=== PATIENT | female | born 1945 | race Caucasian/White ===

== ENCOUNTER 2018-10-13 20:19 | Emergency (ER) | payer MEDICAID, OTHER ==
[2018-10-13 20:32] VITALS: BP 165/70
[2018-10-13] MEDS ORDERED: CEPHALEXIN 250 MG Prepack 8 CAP BOTTLE PO STA (20:41)
[2018-10-13] MEDS ORDERED: MUPIROCIN 2% OINT 1 GM TOP STA (20:41)
--- NOTE | 2018-10-13 20:44 | ED Physician Documentation ---
PD HPI SKIN - Stated complaint Stated Complaint: RT LEG PAIN - Chief complaint Chief Complaint: Wound - History obtained from History obtained from: Patient - History of Present Illness Timing - onset: Chronic (She has a chronic nonhealing leg ulcer. Her insurance became active today so she sought care in the emergency department. She has no acute complaints. Is been going on for greater than a year.) Review of Systems Constitutional: denies: Fever, Chills Respiratory: denies: Dyspnea, Cough GI: denies: Abdominal Pain, Nausea, Vomiting PD PAST MEDICAL HISTORY - Present Medications Home Medications: Ambulatory Orders Medication Instructions Recorded Confirmed Cephalexin [Keflex] 500 mg PO Q6H #28 capsule 10/13/18 Mupirocin 1 gm TP BID #2 oin.pf.enio 10/13/18 - Allergies Allergies/Adverse Reactions: Allergies Allergy/AdvReac Type Severity Reaction Status Date / Time No Known Drug Allergies Allergy Verified 10/13/18 20:28 PD ED PE NORMAL - Vitals Vital signs reviewed: Yes - General General: Alert and oriented X 3, No acute distress - Extremities Extremities: Other (A large leg ulcer on the lower anterior leg on the leg with some surrounding cellulitis. Bounding pedal pulses.) - Neuro Neuro: Alert and oriented X 3, Normal speech Results - Vitals Vitals: Vital Signs - 24 hr 10/13/18 20:28 Temperature 36.6 C Heart Rate 77 Respiratory 16 Rate Blood Pressure 165/70 H O2 Saturation 95 Oxygen O2 Source Room air Departure - Departure Disposition: 01 Home, Self Care Clinical Impression: Leg ulcer Qualifiers: Laterality: right Non-pressure ulcer stage: with fat layer exposed Qualified Code(s): L97.912 - Non-pressure chronic ulcer of unspecified part of right lower leg with fat layer exposed Condition: Good Record reviewed to determine appropriate education?: Yes Instructions: ED Ulcer Venous Leg Follow-Up: Ivanna Garcia MD [Provider Admit Priv/Credential] - Henri Rainey MD [Credentialed Staff Provider] - [facility] [Provider Group] Prescriptions: Cephalexin [Keflex] 500 mg PO Q6H #28 capsule Mupirocin 1 gm TP BID #2 oin.pf.enio Comments: As discussed, the most important thing is to follow-up with your primary care physician for referral to the wound care clinic. Call 1 of the providers listed on this form to arrange for an expedited appointment.. Return if worse. We are performing a wound culture, the results should be done in 48-72 hours. If antibiotic change is necessary we will call you. Return if worse in the meantime, especially if you develop increased pain, fevers, cannot keep down the medication. Otherwise follow-up with your physician in approximately 2-3 days. Your blood pressure was elevated today on check into the emergency department. This does not mean that you have hypertension, it is a common phenomenon to come to the emergency department and have elevated blood pressure. I recommend that you see your primary care physician within the week to have it rechecked when you are feeling better.
== END 2018-10-13 21:13 | disposition home or self-care (01) ==
LOC: ED 20:19
DX: L97.912 Non-pressure chronic ulcer of unspecified part of right lower leg with fat layer exposed (principal); L03.115 Cellulitis of right lower limb; R03.0 Elevated blood-pressure reading, without diagnosis of hypertension
CPT/HCPCS: 87070; 87077; 87181; 87205; 99283; A9270

== ENCOUNTER 2019-03-25 08:00 | Outpatient (CLI) | payer MEDICAID | END 2019-03-25 23:59 | disposition home or self-care (01) | LOC: LAB.R 08:00 | PROVIDERS: ATTEND Nurse Practitioner Family | DX: I83.009 Varicose veins of unspecified lower extremity with ulcer of unspecified site (principal); L97.909 Non-pressure chronic ulcer of unspecified part of unspecified lower leg with unspecified severity | CPT/HCPCS: 87070; 87181; 87205 ==

== ENCOUNTER 2019-03-25 08:00 | Outpatient (CLI) | payer MEDICARE, MEDICAID ==
[2019-03-25 19:02] LABS: BASOPHILS % (AUTO) 0.3 %; EOSINOPHILS # (AUTO) 0.1 10^3/uL (0.0-0.7); HGB - HEMOGLOBIN 11.7 g/dL (12.0-16.0); LYMPHOCYTES % (AUTO) 14.7 %; MEAN CORPUSCULAR HEMOGLOBIN 28.6 pg (27.0-31.0); MEAN CORPUSCULAR HGB CONC 29.8 g/dL (32.0-36.0); MEAN CORPUSCULAR VOLUME 95.8 fL (81.0-99.0); MEAN PLATELET VOLUME 9.4 fL (7.9-10.8); MONOCYTES # (AUTO) 0.3 10^3/uL (0.0-1.0); MONOCYTES % (AUTO) 4.8 %; NEUTROPHILS # (AUTO) 5.6 10^3/uL (1.5-6.6); NEUTROPHILS % (AUTO) 78.9 %; PLT - PLATELET COUNT 333 10^3/uL (130-450); RED BLOOD COUNT 4.09 10^6/uL (4.20-5.40); RED CELL DISTRIBUTION WIDTH 13.2 % (12.0-15.0); WHITE BLOOD COUNT 7.1 x10^3/uL (4.8-10.8)
[2019-03-25 19:36] LABS: ALBUMIN 3.6 g/dL (3.2-5.5); ALBUMIN/GLOBULIN RATIO 0.8 (1.0-2.2); ALKALINE PHOSPHATASE 74 IU/L (42-121); ALT ALANINE AMINOTRANSFERASE 23 IU/L (10-60); AST ASPARTATE AMINOTRANSFERASE 18 IU/L (10-42); BILIRUBIN,TOTAL 0.7 mg/dL (0.2-1.0); BUN - BLOOD UREA NITROGEN 14 mg/dL (6-20); CALCIUM 8.8 mg/dL (8.5-10.3); CARBON DIOXIDE - CO2 25 mmol/L (21-32); CHLORIDE 104 mmol/L (101-111); CHOL/HDL RATIO 2.7 (<4.4); CHOLESTEROL 159 mg/dL; CREATININE 0.8 mg/dL (0.4-1.0); GFR - MDRD 71 (>89); GLUCOSE 93 mg/dL (70-100); HDL CHOLESTEROL 59 mg/dL; LDL CHOLESTEROL,CALCULATED 90 mg/dL; LDL/HDL RATIO 1.5 (<4.4); SODIUM 135 mmol/L (135-145); TOTAL PROTEIN 8.1 g/dL (6.7-8.2); VLDL CHOLESTEROL 10 mg/dL
== END 2019-03-25 23:59 | disposition home or self-care (01) ==
LOC: LAB.WCP 08:00
PROVIDERS: ATTEND Nurse Practitioner Family
DX: I83.009 Varicose veins of unspecified lower extremity with ulcer of unspecified site (principal); I10 Essential (primary) hypertension; L97.909 Non-pressure chronic ulcer of unspecified part of unspecified lower leg with unspecified severity
CPT/HCPCS: 36415; 80053; 80061; 83721; 84443; 85025; 87070; 87181; 87205

== ENCOUNTER 2019-04-04 09:38 | Outpatient (CLI) | payer MEDICARE, MEDICAID ==
--- NOTE | 2019-04-04 18:13 | Ultrasound Report ---
Reason: VENOUS STASIS ULCER Procedure Date: 04/04/2019 Accession Number: [id number] / [id number] Procedure: US - Duplex Ext Veins Bilateral CPT Code: Final Report FULL RESULT: EXAM: BILATERAL LOWER EXTREMITY VENOUS ULTRASOUND EXAM DATE: 04/04/2019 10:46 AM. CLINICAL HISTORY: VENOUS STASIS ULCER. COMPARISON: None. TECHNIQUE: Real-time sonographic vascular imaging was performed by the board certified music therapist through the lower extremities utilizing both color-flow and Doppler spectral analysis. Multiple commissary representative static images were saved for review. FINDINGS: Right: Common Femoral Vein (CFV): Normal. CFV-GSV Junction: Normal. Profunda Femoral Vein (PFV): Normal. Femoral Vein (FV) Prox: Normal. Femoral Vein (FV) Mid: Normal. Femoral Vein (FV) Dist: Normal. Popliteal Vein: Normal. Posterior Tibial Veins: Normal. Peroneal Veins: Normal. Left: Common Femoral Vein (CFV): Normal. CFV-GSV Junction: Normal. Profunda Femoral Vein (PFV): Normal. Femoral Vein (FV) Prox: Normal. Femoral Vein (FV) Mid: Normal. Femoral Vein (FV) Dist: Normal. Popliteal Vein: Normal. Posterior Tibial Veins: Normal. Peroneal Veins: Normal. Other: None. IMPRESSION: No evidence for deep venous thrombosis bilaterally. RADIA
== END 2019-04-04 09:39 | disposition home or self-care (01) ==
LOC: DI 09:38
PROVIDERS: ATTEND Nurse Practitioner Family
DX: I83.009 Varicose veins of unspecified lower extremity with ulcer of unspecified site (principal)
CPT/HCPCS: 93970

== ENCOUNTER 2019-04-15 07:00 | Outpatient (CLI) | payer MEDICARE, MEDICAID | END 2019-04-15 23:59 | disposition home or self-care (01) | LOC: LAB.R 07:00 | PROVIDERS: ATTEND Nurse Practitioner Family | DX: I83.022 Varicose veins of left lower extremity with ulcer of calf (principal) | CPT/HCPCS: 87070; 87077; 87181; 87205 ==

== ENCOUNTER 2019-10-03 10:33 | Outpatient (CLI) | payer MEDICARE, MEDICAID ==
[2019-10-03 12:14] LABS: BASOPHILS % (AUTO) 0.5 %; EOSINOPHILS # (AUTO) 0.2 10^3/uL (0.0-0.7); EOSINOPHILS % (AUTO) 1.9 %; HGB - HEMOGLOBIN 12.3 g/dL (12.0-16.0); LYMPHOCYTES # (AUTO) 2.1 10^3/uL (1.5-3.5); LYMPHOCYTES % (AUTO) 25.8 %; MEAN CORPUSCULAR HEMOGLOBIN 30.5 pg (27.0-31.0); MEAN CORPUSCULAR HGB CONC 32.5 g/dL (32.0-36.0); MEAN PLATELET VOLUME 9.6 fL (7.9-10.8); MONOCYTES # (AUTO) 0.5 10^3/uL (0.0-1.0); MONOCYTES % (AUTO) 6.4 %; NEUTROPHILS # (AUTO) 5.4 10^3/uL (1.5-6.6); NEUTROPHILS % (AUTO) 65.2 %; PLT - PLATELET COUNT 238 10^3/uL (130-450); RED BLOOD COUNT 4.03 10^6/uL (4.20-5.40); RED CELL DISTRIBUTION WIDTH 13.7 % (12.0-15.0); WHITE BLOOD COUNT 8.2 x10^3/uL (4.8-10.8)
[2019-10-03 12:51] LABS: CALCIUM 9.4 mg/dL (8.5-10.3)
== END 2019-10-03 10:34 | disposition home or self-care (01) ==
LOC: LAB.WCP 10:33
PROVIDERS: ATTEND Nurse Practitioner Family
DX: I10 Essential (primary) hypertension (principal)
CPT/HCPCS: 36415; 80048; 85025

== ENCOUNTER 2020-02-10 11:59 | Outpatient (CLI) | payer MEDICARE, MEDICAID ==
[2020-02-10 12:14] LABS: BASOPHILS % (AUTO) 0.2 %; HGB - HEMOGLOBIN 13.5 g/dL (12.0-16.0); LYMPHOCYTES # (AUTO) 0.7 10^3/uL (1.5-3.5); LYMPHOCYTES % (AUTO) 6.1 %; MEAN CORPUSCULAR HGB CONC 32.2 g/dL (32.0-36.0); MEAN CORPUSCULAR VOLUME 93.1 fL (81.0-99.0); MEAN PLATELET VOLUME 8.7 fL (7.9-10.8); MONOCYTES # (AUTO) 0.1 10^3/uL (0.0-1.0); MONOCYTES % (AUTO) 0.9 %; NEUTROPHILS # (AUTO) 9.8 10^3/uL (1.5-6.6); NEUTROPHILS % (AUTO) 92.1 %; PLT - PLATELET COUNT 184 10^3/uL (130-450); RED CELL DISTRIBUTION WIDTH 13.9 % (12.0-15.0); WHITE BLOOD COUNT 10.7 x10^3/uL (4.8-10.8)
[2020-02-10 12:27] LABS: ALBUMIN 3.8 g/dL (3.2-5.5); CALCIUM 9.2 mg/dL (8.5-10.3); CREATININE 0.9 mg/dL (0.4-1.0); TOTAL PROTEIN 7.6 g/dL (6.7-8.2)
== END 2020-02-10 12:00 | disposition home or self-care (01) ==
LOC: LAB 11:59
PROVIDERS: ATTEND Nurse Practitioner
DX: I83.013 Varicose veins of right lower extremity with ulcer of ankle (principal); L97.321 Non-pressure chronic ulcer of left ankle limited to breakdown of skin; Z87.2 Personal history of diseases of the skin and subcutaneous tissue
CPT/HCPCS: 80053; 85025

== ENCOUNTER 2020-03-06 10:10 | Outpatient (CLI) | payer MEDICARE, MEDICAID ==
[2020-03-06 10:58] LABS: ALBUMIN 3.8 g/dL (3.2-5.5); ALBUMIN/GLOBULIN RATIO 1.1 (1.0-2.2); BILIRUBIN,TOTAL 1.1 mg/dL (0.2-1.0); CALCIUM 9.5 mg/dL (8.5-10.3); CREATININE 0.8 mg/dL (0.4-1.0); TOTAL PROTEIN 7.2 g/dL (6.7-8.2)
== END 2020-03-06 10:11 | disposition home or self-care (01) ==
LOC: LAB 10:10
PROVIDERS: ATTEND Internal Medicine Gastroenterology
DX: L88 Pyoderma gangrenosum (principal); I10 Essential (primary) hypertension
CPT/HCPCS: 36415; 80053

== ENCOUNTER 2020-03-13 10:45 | Outpatient (CLI) | payer MEDICARE, MEDICAID ==
[2020-03-13 11:05] LABS: BASOPHILS % (AUTO) 0.2 %; HCT - HEMATOCRIT 42.4 % (37.0-47.0); HGB - HEMOGLOBIN 13.4 g/dL (12.0-16.0); LYMPHOCYTES # (AUTO) 1.3 10^3/uL (1.5-3.5); LYMPHOCYTES % (AUTO) 9.9 %; MEAN CORPUSCULAR HEMOGLOBIN 29.7 pg (27.0-31.0); MEAN CORPUSCULAR HGB CONC 31.6 g/dL (32.0-36.0); MONOCYTES # (AUTO) 0.3 10^3/uL (0.0-1.0); MONOCYTES % (AUTO) 2.6 %; NEUTROPHILS # (AUTO) 11.3 10^3/uL (1.5-6.6); NEUTROPHILS % (AUTO) 86.2 %; PLT - PLATELET COUNT 196 10^3/uL (130-450); RED BLOOD COUNT 4.51 10^6/uL (4.20-5.40); RED CELL DISTRIBUTION WIDTH 14.3 % (12.0-15.0); WHITE BLOOD COUNT 13.2 x10^3/uL (4.8-10.8)
[2020-03-13 11:19] LABS: ALBUMIN 3.7 g/dL (3.2-5.5); ALBUMIN/GLOBULIN RATIO 1.1 (1.0-2.2); BILIRUBIN,TOTAL 1.6 mg/dL (0.2-1.0); CALCIUM 9.5 mg/dL (8.5-10.3); CREATININE 0.9 mg/dL (0.4-1.0); POTASSIUM 4.4 mmol/L (3.5-5.0)
== END 2020-03-13 10:46 | disposition home or self-care (01) ==
LOC: LAB 10:45
PROVIDERS: ATTEND Nurse Practitioner Family
DX: I10 Essential (primary) hypertension (principal)
CPT/HCPCS: 36415; 80053; 85025

== ENCOUNTER 2020-03-23 11:17 | Outpatient (CLI) | payer MEDICARE, MEDICAID ==
[2020-03-23 11:40] LABS: BASOPHILS % (AUTO) 0.2 %; EOSINOPHILS % (AUTO) 0.2 %; HGB - HEMOGLOBIN 13.8 g/dL (12.0-16.0); LYMPHOCYTES # (AUTO) 1.3 10^3/uL (1.5-3.5); LYMPHOCYTES % (AUTO) 10.1 %; MEAN CORPUSCULAR HEMOGLOBIN 31.1 pg (27.0-31.0); MEAN CORPUSCULAR HGB CONC 33.3 g/dL (32.0-36.0); MEAN CORPUSCULAR VOLUME 93.5 fL (81.0-99.0); MEAN PLATELET VOLUME 8.8 fL (7.9-10.8); MONOCYTES # (AUTO) 0.3 10^3/uL (0.0-1.0); MONOCYTES % (AUTO) 2.4 %; NEUTROPHILS # (AUTO) 11.1 10^3/uL (1.5-6.6); NEUTROPHILS % (AUTO) 85.9 %; PLT - PLATELET COUNT 213 10^3/uL (130-450); RED BLOOD COUNT 4.44 10^6/uL (4.20-5.40); RED CELL DISTRIBUTION WIDTH 14.2 % (12.0-15.0)
[2020-03-23 11:58] LABS: ALBUMIN 3.9 g/dL (3.2-5.5); ALBUMIN/GLOBULIN RATIO 1.2 (1.0-2.2); BILIRUBIN,TOTAL 1.7 mg/dL (0.2-1.0); CALCIUM 9.1 mg/dL (8.5-10.3); CREATININE 1.1 mg/dL (0.4-1.0); TOTAL PROTEIN 7.2 g/dL (6.7-8.2)
--- OUTSIDE RECORDS SUMMARY | 2020-03-28 01:35 | EXTERNAL MEDICAL SUMMARY RPT | Continuity of Care Document ---
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 2020-01-09 00:00:00 Tobacco use and exposure [facility] [place] [facility] 2020-01-09 00:00:00 [facility] [place] [facility] 2020-01-09 00:00:00 [facility] [place] [facility] 2020-01-09 00:00:00 Alcohol use [facility] [place] [facility] 2020-01-09 00:00:00 Tobacco smoking status [facility] [place] [facility] 2020-01-09 00:00:00 Total score? [facility] [place] [facility] 2020-01-11 15:15 CHRONIC VENOUS HYPERTENSION [facility] ULCER OF R LOW EXTREM 2020-01-11 15:15 NON-PRS CHR ULCER OTH PRT R [facility] LEG LIMITED TO [facility] SKIN 2020-01-19 10:30 CHRONIC VENOUS HYPERTENSION W [facility] ULCER OF R LOW EXTREM 2020-01-19 10:30 NON-PRS CHR ULCER OTH PRT R [facility] LEG LIMITED TO [facility] SKIN 2020-01-26 11:15 CHRONIC VENOUS HYPERTENSION W [facility] ULCER OF R LOW EXTREM 2020-01-26 11:15 NON-PRS CHR ULCER OTH PRT R [facility] LEG LIMITED TO [facility] SKIN 2020-02-02 00:00 CHRONIC VENOUS HYPERTENSION W [facility] ULCER OF R LOW EXTREM 2020-02-02 00:00 NON-PRS CHR ULCER OTH PRT R [facility] LEG LIMITED TO [facility] SKIN 2020-02-02 10:58 CHRONIC VENOUS HYPERTENSION W [facility] ULCER OF R LOW EXTREM 2020-02-02 10:58 NON-PRS CHR ULCER OTH PRT R [facility] LEG LIMITED TO [facility] SKIN 2020-02-10 10:30 CHRONIC VENOUS HYPERTENSION [facility] ULCER OF R LOW EXTREM 2020-02-10 10:30 NON-PRS CHR ULCER OTH PRT R [facility] LEG LIMITED TO [facility] SKIN 2020-02-10 11:59 VARICOSE VEINS OF RIGHT LOWER [facility] EXTREMITY WITH ULCER OF ANKLE 2020-02-15 15:30 CHRONIC VENOUS HYPERTENSION [facility] ULCER OF R LOW EXTREM 2020-02-15 15:30 NON-PRS CHR ULCER OTH PRT R [facility] LEG LIMITED TO [facility] SKIN 2020-02-17 11:15 CHRONIC VENOUS HYPERTENSION W [facility] ULCER OF R LOW EXTREM 2020-02-17 11:15 NON-PRS CHR ULCER OTH PRT R [facility] LEG LIMITED TO [facility] SKIN 2020-02-21 09:00 VARICOSE VEINS OF RIGHT LOWER [facility] EXTREMITY WITH ULCER OF ANKLE 2020-02-21 09:00 CHRONIC VENOUS HYPERTENSION [facility] ULCER OF R LOW EXTREM 2020-02-21 09:00 PYODERMA GANGRENOSUM [facility] 2020-02-21 09:00 NON-PRS CHRONIC ULCER OF RIGHT [facility] ANKLE W FAT LAYER EXPOSED 2020-02-21 09:00 NON-PRS CHR ULCER OTH PRT R LOW [facility] LEG LIMITED TO [facility] SKIN 2020-02-21 09:00 TOP WADDY (CURRENT) USE OF [facility] SYSTEMIC STEROIDS 2020-02-24 10:30 VARICOSE VEINS OF RIGHT LOWER [facility] EXTREMITY WITH ULCER OF ANKLE 2020-02-24 10:30 PYODERMA GANGRENOSUM [facility] 2020-02-24 10:30 NON-PRS CHRONIC ULCER OF RIGHT [facility] ANKLE W FAT LAYER EXPOSED 2020-02-24 10:30 TOP WADDY (CURRENT) USE OF [facility] SYSTEMIC STEROIDS 2020-02-28 00:00:00 COMPREHENSIVE METABOLIC PANEL [facility] [place] [facility] 2020-02-28 09:30 VARICOSE VEINS OF RIGHT LOWER [facility] EXTREMITY WITH ULCER OF ANKLE 2020-02-28 09:30 PYODERMA GANGRENOSUM [facility] 2020-02-28 09:30 NON-PRS CHRONIC ULCER OF RIGHT [facility] ANKLE W FAT LAYER EXPOSED 2020-02-28 09:30 FPC (CURRENT) USE OF [facility] SYSTEMIC STEROIDS 2020-03-01 09:30 VARICOSE VEINS OF RIGHT LOWER [facility] EXTREMITY WITH ULCER OF ANKLE 2020-03-01 09:30 PYODERMA GANGRENOSUM [facility] 2020-03-01 09:30 NON-PRS CHRONIC ULCER OF RIGHT [facility] ANKLE W FAT LAYER EXPOSED 2020-03-01 09:30 FPC (CURRENT) USE OF [facility] SYSTEMIC STEROIDS 2020-03-06 09:15 VARICOSE VEINS OF RIGHT LOWER [facility] EXTREMITY WITH ULCER OF ANKLE 2020-03-06 09:15 PYODERMA GANGRENOSUM [facility] 2020-03-06 09:15 NON-PRS CHRONIC ULCER OF RIGHT [facility] ANKLE W FAT LAYER EXPOSED 2020-03-06 09:15 FPC (CURRENT) USE OF [facility] SYSTEMIC STEROIDS 2020-03-08 09:30 VARICOSE VEINS OF RIGHT LOWER [facility] EXTREMITY WITH ULCER OF ANKLE 2020-03-08 09:30 PYODERMA GANGRENOSUM [facility] 2020-03-08 09:30 NON-PRS CHRONIC ULCER OF RIGHT [facility] ANKLE W FAT LAYER EXPOSED 2020-03-08 09:30 TOP WADDY (CURRENT) USE OF [facility] SYSTEMIC STEROIDS 2020-03-13 09:45 VARICOSE VEINS OF RIGHT LOWER [facility] EXTREMITY WITH ULCER OF ANKLE 2020-03-13 09:45 PYODERMA GANGRENOSUM [facility] 2020-03-13 09:45 NON-PRS CHRONIC ULCER OF RIGHT [facility] ANKLE W FAT LAYER EXPOSED 2020-03-13 09:45 NON-PRS CHRONIC ULCER OF LEFT [facility] ANKLE LIMITED TO [facility] SKIN 2020-03-13 09:45 TOP WADDY (CURRENT) USE OF [facility] SYSTEMIC STEROIDS 2020-03-13 09:45 PERSONAL HISTORY OF DISEASES OF [facility] THE SKIN, SUBCU 2020-03-13 10:45 ESSENTIAL (PRIMARY) [facility] HYPERTENSION 2020-03-15 11:15 VARICOSE VEINS OF RIGHT LOWER [facility] EXTREMITY WITH ULCER OF ANKLE 2020-03-15 11:15 PYODERMA GANGRENOSUM [facility] 2020-03-15 11:15 NON-PRS CHRONIC ULCER OF RIGHT [facility] ANKLE W FAT LAYER EXPOSED 2020-03-15 11:15 NON-PRS CHRONIC ULCER OF LEFT [facility] ANKLE LIMITED TO [place] SKIN 2020-03-15 11:15 FPC (CURRENT) USE OF [facility] SYSTEMIC STEROIDS 2020-03-15 11:15 PERSONAL HISTORY OF DISEASES OF [facility] THE SKIN, SUBCU 2020-03-20 00:00 VARICOSE VEINS OF RIGHT LOWER [facility] EXTREMITY WITH ULCER OF ANKLE 2020-03-20 00:00 PYODERMA GANGRENOSUM [facility] 2020-03-20 00:00 NON-PRS CHRONIC ULCER OF RIGHT [facility] ANKLE W FAT LAYER EXPOSED 2020-03-20 00:00 NON-PRS CHRONIC ULCER OF LEFT [facility] ANKLE LIMITED TO [place] SKIN 2020-03-20 00:00 FPC (CURRENT) USE OF [facility] SYSTEMIC STEROIDS 2020-03-20 00:00 PERSONAL HISTORY OF DISEASES OF [facility] THE SKIN, SUBCU 2020-03-20 00:00:00 Basic Metabolic Panel (BMP) [facility] [place] [facility] 2020-03-20 11:23 VARICOSE VEINS OF RIGHT LOWER [facility] EXTREMITY WITH ULCER OF ANKLE 2020-03-20 11:23 PYODERMA GANGRENOSUM [facility] 2020-03-20 11:23 NON-PRS CHRONIC ULCER OF RIGHT [facility] ANKLE W FAT LAYER EXPOSED 2020-03-20 11:23 NON-PRS CHRONIC ULCER OF LEFT [facility] ANKLE LIMITED TO [facility] SKIN 2020-03-20 11:23 TOP WADDY (CURRENT) USE OF [facility] SYSTEMIC STEROIDS 2020-03-20 11:23 PERSONAL HISTORY OF DISEASES OF [facility] THE SKIN, SUBCU 2020-03-23 10:00 VARICOSE VEINS OF RIGHT LOWER [facility] EXTREMITY WITH ULCER OF ANKLE 2020-03-23 10:00 PYODERMA GANGRENOSUM [facility] 2020-03-23 10:00 NON-PRS CHRONIC ULCER OF RIGHT [facility] ANKLE W FAT LAYER EXPOSED 2020-03-23 10:00 NON-PRS CHRONIC ULCER OF LEFT [facility] ANKLE LIMITED TO [place] SKIN 2020-03-23 10:00 FPC (CURRENT) USE OF [facility] SYSTEMIC STEROIDS 2020-03-23 10:00 PERSONAL HISTORY OF DISEASES OF [facility] THE SKIN, SUBCU 2020-03-23 11:17 OTHER TOP WADDY (CURRENT) DRUG [facility] THERAPY 2020-03-27 13:45 VARICOSE VEINS OF RIGHT LOWER [facility] EXTREMITY WITH ULCER OF ANKLE 2020-03-27 13:45 PYODERMA GANGRENOSUM [facility] 2020-03-27 13:45 NON-PRS CHRONIC ULCER OF RIGHT [facility] ANKLE W FAT LAYER EXPOSED 2020-03-27 13:45 NON-PRS CHRONIC ULCER OF LEFT [facility] ANKLE LIMITED TO [place] SKIN 2020-03-27 13:45 TOP WADDY (CURRENT) USE OF [facility] SYSTEMIC STEROIDS 2020-03-27 13:45 PERSONAL HISTORY OF DISEASES OF [facility] THE SKIN, SUBCU Allergies date description facility NO KNOWN ENVIRONMENTAL ALLERGIES [facility] No Known Drug Allergies [facility] ADHESIVE \T\ T[facility] B[facility]LO[facility]EN [facility] BEE V[facility]OM [facility] BUPROPION [facility] CARBIDOPA W-LEVODOPA [facility] CHLORHEXIDINE [facility] CLINDAMYCIN [facility] CODEINE SULFATE [facility] CODEINE [facility] DOXYCYCLINE MONOHYDRATE [facility]UOXETINE [facility] GABAPENTIN [facility] HYDROCODONE [facility] HYDROMORPHONE HCL [facility] LISINOPRIL [facility] MEPERIDINE [facility] METHADONE [facility] METOCLOPRAMIDE [facility] MOLDS \T\ SMUTS [facility] MORPHINE [facility] NAPROXEN [facility] OXYCODONE [facility]CL [facility] OXYCODONE [facility] PENICILLIN V POTASSIUM [facility] POLLEN [facility]TRACT [facility] PREDNISONE [facility] PROPOXYPHENE [facility] SERTRALINE [facility] SULFAMETHOXAZOLE-TRIMETHOPRIM [facility] VANCOMYCIN [facility] VENLAFAXINE [facility] HYDROCODONE-HOMATROPINE [facility] PENICILLIN V POTASSIUM [facility] TRIAMTERENE-HCTZ [facility] NO KNOWN ENVIRONMENTAL ALLERGIES [facility] NSAIDS [facility] PENICILLINS [facility] SULFA ANTIBIOTICS [facility] HOPS [facility] ADHESIVE [facility] AMOXICILLIN TRIHYDRATE [facility] AMPICILLIN [facility] CEFAZOLIN [facility] CEPHALEXIN HCL [facility] CEPHALOSPORINS [facility] CIPROFLOXACIN [facility] CODEINE [facility] DICLOFENAC SODIUM [facility] HYDROCODONE [facility] LATEX [facility] MORPHINE [facility] OXYCODONE-ACETAMINOPHEN [facility] OXYCODONE-ASPIRIN [facility] PENICILLINS [facility] POTASSIUM CLAVULANATE [facility] SCOPOLAMINE [facility] SULFA (SULFONAMIDE ANTIBIOTICS) [facility] VENOM-HONEY BEE [facility] WARFARIN [facility] NO KNOWN ALLERGIES [facility] NO ALLERGY INFORMATION AVAILABLE [facility] SULFA (SULFONAMIDE ANTIBIOTICS) [facility] NO KNOWN ALLERGIES [facility] ASPARTAME [facility] COCONUT OIL [facility] LATEX [facility] MONOSODIUM GLUTAMATE [facility] FOOD [facility] PISTACHIO NUT [facility] RED DYE [facility] SHELLFISH [facility] STRAWBERRY [facility] STARCH [facility] MORPHINE [facility] CODEINE [facility] CODEINE PHOSPHATE [facility] CODEINE SULFATE [facility] OXYCODONE [facility] PANTOPRAZOLE [facility] LEVOFLOXACIN [facility] HYDROCODONE-ACETAMINOPHEN [facility] Sulfa (Sulfonamide Antibiotics) [facility] No Known Drug Allergies [facility] Medications date description facility 2020-01-09 00:00:00 null [facility] [place] [facility] 2020-01-09 00:00:00 [facility] [place] [facility] 2020-01-09 00:00:00 LISINOPRIL [facility] [place] [facility] 2020-01-09 00:00:00 LISINOPRIL [facility] [place] [facility] 2020-01-31 00:00:00 null [facility] [place] [facility] 2020-01-31 00:00:00 null [facility] [place] [facility] 2020-01-31 00:00:00 null [facility] [place] [facility] 2020-01-31 00:00:00 null [facility] [place] [facility] 2020-01-31 00:00:00 PREDNISONE [facility] [place] [facility] 2020-01-31 00:00:00 OMEPRAZOLE [facility] [place] [facility] 2020-01-31 00:00:00 PREDNISONE [facility] [place] [facility] 2020-01-31 00:00:00 OMEPRAZOLE [facility] [place] [facility] 2020-02-03 00:00:00 null [facility] [place] [facility] 2020-02-03 00:00:00 null [facility] [place] [facility] 2020-02-03 00:00:00 PREDNISONE [facility] [place] [facility] 2020-02-03 00:00:00 PREDNISONE [facility] [place] [facility] 2020-02-17 00:00:00 null [facility] [place] [facility] 2020-02-17 00:00:00 null [facility] [place] [facility] 2020-02-17 00:00:00 null [facility] [place] [facility] 2020-02-17 00:00:00 null [facility] [place] [facility] 2020-02-17 00:00:00 CEPHALEXIN [facility] [place] [facility] 2020-02-17 00:00:00 CIPROFLOXACIN HCL [facility] [place] [facility] 2020-02-17 00:00:00 CEPHALEXIN [facility] [place] [facility] 2020-02-17 00:00:00 CIPROFLOXACIN HCL [facility] [place] [facility] 2020-02-28 00:00:00 null [facility] [place] [facility] 2020-02-28 00:00:00 null [facility] [place] [facility] 2020-02-28 00:00:00 CYCLOSPORINE [facility] [place] [facility] 2020-02-28 00:00:00 CYCLOSPORINE [facility] [place] [facility] Results Social History date description facility 2020-01-09 00:00:00 Never smoker [facility] [place] [facility] Social History date description facility 2020-01-09 00:00:00 Never smoker [facility] [place] [facility] date description facility [id number]
== END 2020-03-23 11:18 | disposition home or self-care (01) ==
LOC: LAB 11:17
PROVIDERS: ATTEND Nurse Practitioner
DX: I10 Essential (primary) hypertension (principal); Z79.899 Other long term (current) drug therapy; L88 Pyoderma gangrenosum
CPT/HCPCS: 36415; 80053; 85025

== ENCOUNTER 2020-05-18 13:22 | Outpatient (CLI) | payer MEDICARE, MEDICAID ==
--- NOTE | 2020-05-18 15:11 | Ultrasound Report ---
PROCEDURE: Duplex Ext Veins Left INDICATIONS: PAIN IN LEFT LEG TECHNIQUE: Real-time imaging, as well as color and pulse Doppler interrogation, were performed of the lower extr emity deep veins from the inguinal ligament to the popliteal fossa. COMPARISON: None. FINDINGS: The deep veins are normally compressible, and free of intraluminal thrombus. Color and pu lse Doppler demonstrate normal phasic intraluminal flow. There is normal augmentation response to di stal compression maneuver. There is superficial thrombophlebitis involving the distal medial thigh a nd popliteal fossa, and distal calf The calf veins are not well seen secondary to soft tissue edema. IMPRESSION: No evidence of deep venous thrombosis. Superficial thrombophlebitis involving the medial left lower extremity Reviewed by: Easton Barbour MD on 05/18/2020 3:09 PM PST Approved by: Easton Barbour MD on 05/18/2020 3:09 PM PST Station ID: [id number]
== END 2020-05-18 13:23 | disposition home or self-care (01) ==
LOC: DI 13:22
PROVIDERS: ATTEND Nurse Practitioner
DX: I80.222 Phlebitis and thrombophlebitis of left popliteal vein (principal)

== ENCOUNTER 2020-05-25 12:15 | Outpatient (CLI) | payer MEDICARE, MEDICAID ==
[2020-05-25 12:31] LABS: BILIRUBIN,URINE NEGATIVE (NEGATIVE); GLUCOSE, URINE (UA) NEGATIVE (NEGATIVE); KETONES,URINE (UA) NEGATIVE (NEGATIVE); LEUKOCYTE ESTERASE, URINE NEGATIVE (NEGATIVE); NITRITE,URINE NEGATIVE (NEGATIVE); OCCULT BLOOD,URINE NEGATIVE (NEGATIVE); PROTEIN,URINE NEGATIVE (NEGATIVE); UROBILINOGEN,URINE 0.2 (NORMAL) E.U./dL (NORMAL)
[2020-05-25 12:37] LABS: CLARITY,URINE CLEAR (CLEAR); RBC,URINE 0-5 /HPF (0-5); SQUAMOUS EPITHELIAL CELL,UR FEW Squamous (<= Few); WBC,URINE 0-3 /HPF (0-5)
[2020-05-25 12:38] LABS: BACTERIA,URINE None Seen /HPF (None Seen)
--- NOTE | 2020-05-25 15:00 | XRAY Report ---
PROCEDURE: Chest 2 View X-Ray INDICATIONS: ESSENTIAL (PRIMARY) HYPERTENSION TECHNIQUE: 2 view(s) of the chest. COMPARISON: None. FINDINGS: Surgical changes and devices: None. Lungs and pleura: No pleural effusions or pneumothorax. Mild diffuse interstitial thickening. No fo jenise consolidations. Mediastinum: Mediastinal contours are normal. Heart size is normal. Bones and chest wall: No suspicious bony abnormalities. Incompletely visualized, possible T11 compr ession deformity. Degenerative endplate changes anteriorly throughout the rest of the thoracic spine. Soft tissues appear unremarkable. IMPRESSION: 1. Mild diffuse interstitial thickening. This can be seen in CHF or chronic interstitial lung disease . 2. Possible T11 compression deformity. Correlate clinically. Reviewed by: Zoë Baum MD on 05/25/2020 2:58 PM PST Approved by: Zoë Baum MD on 05/25/2020 2:58 PM PST Station ID: [id number]
== END 2020-05-25 12:16 | disposition home or self-care (01) ==
LOC: DI 12:15
PROVIDERS: ATTEND Internal Medicine Gastroenterology
DX: I10 Essential (primary) hypertension (principal); I48.91 Unspecified atrial fibrillation; E63.9 Nutritional deficiency, unspecified; K43.2 Incisional hernia without obstruction or gangrene; F10.20 Alcohol dependence, uncomplicated; R91.8 Other nonspecific abnormal finding of lung field
CPT/HCPCS: 81001

== ENCOUNTER 2020-06-01 11:45 | Outpatient (CLI) | payer MEDICARE, MEDICAID ==
--- NOTE | 2020-06-01 16:58 | XRAY Report ---
PROCEDURE: Lumbar Spine 2 View INDICATIONS: LOW BACK PAIN TECHNIQUE: 2 views of the lumbar spine were acquired. COMPARISON: None. FINDINGS: Bones: 5 [id number]-[id number] vertebrae are present. There is normal bony alignment. 30% anterior height loss of T12 is consistent with a compression fracture of indeterminate age. There is facet arthrosis at L4-5 and L5-S1. Soft tissues: Overlying bowel gas pattern is normal. No suspicious soft tissue calcifications. The aorta has atherosclerotic calcifications. IMPRESSION: 1. Compression fracture of T12 with 30% height loss of indeterminate age. 2. Facet arthrosis at L4-5 and L5-S1. Reviewed by: Clay Boswell on 06/01/2020 4:57 PM PDT Approved by: Clay Boswell on 06/01/2020 4:57 PM PDT Station ID: [id number]
== END 2020-06-01 11:46 | disposition home or self-care (01) ==
LOC: DI 11:45
PROVIDERS: ATTEND Nurse Practitioner Family
DX: M54.5 Low back pain (principal); M47.817 Spondylosis without myelopathy or radiculopathy, lumbosacral region; M48.54XA Collapsed vertebra, not elsewhere classified, thoracic region, initial encounter for fracture

== ENCOUNTER 2020-06-13 08:00 | Outpatient (CLI) | payer MEDICARE, MEDICAID ==
[2020-06-13 18:16] LABS: BASOPHILS % (AUTO) 0.2 %; HCT - HEMATOCRIT 40.1 % (37.0-47.0); HGB - HEMOGLOBIN 12.8 g/dL (12.0-16.0); LYMPHOCYTES # (AUTO) 0.6 10^3/uL (1.5-3.5); MEAN CORPUSCULAR HEMOGLOBIN 31.5 pg (27.0-31.0); MEAN CORPUSCULAR HGB CONC 31.9 g/dL (32.0-36.0); MEAN CORPUSCULAR VOLUME 98.8 fL (81.0-99.0); MONOCYTES # (AUTO) 0.2 10^3/uL (0.0-1.0); MONOCYTES % (AUTO) 1.7 %; NEUTROPHILS # (AUTO) 10.3 10^3/uL (1.5-6.6); NEUTROPHILS % (AUTO) 92.6 %; PLT - PLATELET COUNT 264 10^3/uL (130-450); RED BLOOD COUNT 4.06 10^6/uL (4.20-5.40); RED CELL DISTRIBUTION WIDTH 13.2 % (12.0-15.0); WHITE BLOOD COUNT 11.1 x10^3/uL (4.8-10.8)
[2020-06-13 18:55] LABS: ALBUMIN/GLOBULIN RATIO 1.3 (1.0-2.2); BILIRUBIN,TOTAL 2.3 mg/dL (0.2-1.0); CALCIUM 9.7 mg/dL (8.5-10.3); CREATININE 0.9 mg/dL (0.4-1.0); POTASSIUM 3.9 mmol/L (3.5-5.0)
[2020-06-15 11:41] LABS: COMPLEMENT COMPONENT C3C 142 mg/dL (83-193); COMPLEMENT COMPONENT C4C 28 mg/dL (15-57)
== END 2020-06-13 23:59 | disposition home or self-care (01) ==
LOC: LAB.WCP 08:00
PROVIDERS: ATTEND Nurse Practitioner Family
DX: I10 Essential (primary) hypertension (principal); R76.8 Other specified abnormal immunological findings in serum; L88 Pyoderma gangrenosum
CPT/HCPCS: 36415; 80053; 85025; 85651; 86160

== ENCOUNTER 2020-06-14 08:00 | Outpatient (CLI) | payer MEDICARE, MEDICAID ==
[2020-06-14 17:56] LABS: BILIRUBIN,URINE NEGATIVE (NEGATIVE); GLUCOSE, URINE (UA) NEGATIVE (NEGATIVE); KETONES,URINE (UA) NEGATIVE (NEGATIVE); LEUKOCYTE ESTERASE, URINE NEGATIVE (NEGATIVE); NITRITE,URINE NEGATIVE (NEGATIVE); OCCULT BLOOD,URINE NEGATIVE (NEGATIVE); PH,URINE 5.5 PH (5.0-7.5); PROTEIN,URINE NEGATIVE (NEGATIVE); UROBILINOGEN,URINE 0.2 (NORMAL) E.U./dL (NORMAL)
[2020-06-14 18:04] LABS: BACTERIA,URINE None Seen /HPF (None Seen); CLARITY,URINE CLEAR (CLEAR); RBC,URINE 0-5 /HPF (0-5); SQUAMOUS EPITHELIAL CELL,UR RARE Squamous (<= Few); WBC,URINE 0-3 /HPF (0-5)
== END 2020-06-14 23:59 | disposition home or self-care (01) ==
LOC: LAB.WCP 08:00
PROVIDERS: ATTEND Internal Medicine Rheumatology
DX: L88 Pyoderma gangrenosum (principal); R76.8 Other specified abnormal immunological findings in serum
CPT/HCPCS: 81001

== ENCOUNTER 2020-07-06 09:42 | Outpatient (CLI) | payer MEDICARE, MEDICAID ==
--- NOTE | 2020-07-06 17:11 | DEXA Report ---
PROCEDURE: Dexa Spine and/or Hip INDICATIONS: POST MENOPAUSAL TECHNIQUE: Dual energy x-ray absorptiometry (DXA) was performed on a [employer] System. Regions measur ed are the AP Spine, femoral neck, and if needed forearm. COMPARISON: None. FINDINGS: Lumbar Spine: Bone Mineral Density 0.805 g/cm/cm,T score -3.1, osteoporosis Left Hip: Bone Mineral Density 0.683 g/cm/cm,T score -2.6, osteoporosis Left Femoral Neck: Bone Mineral Density 0.663 g/cm/cm, T score -2.7, osteoporosis (T score greater or equal to -1.0: NORMAL) (T score from -1.1 to -2.4: OSTEOPENIA) (T score less than or equal to -2.5 to: OSTEOPOROSIS) Impression: Osteoporosis. Patients with diagnosis of osteoporosis or osteopenia should have regular bone mineral density assess ment. For those eligible for Medicare, routine testing is allowed once every 2 years. Testing frequ ency can be increased for patients who have rapidly progressing disease or for those who are receivin g medical therapy to restore bone mass. Reviewed by: Aminata Pyle MD, PhD on 07/06/2020 5:10 PM PDT Approved by: Aminata Pyle MD, PhD on 07/06/2020 5:10 PM PDT Station ID: [id number]
== END 2020-07-06 09:43 | disposition home or self-care (01) ==
LOC: DI 09:42
PROVIDERS: ATTEND Nurse Practitioner Family
DX: M81.0 Age-related osteoporosis without current pathological fracture (principal)

== ENCOUNTER 2020-08-03 10:03 | Outpatient (CLI) | payer MEDICARE, MEDICAID | END 2020-08-03 10:04 | disposition home or self-care (01) | LOC: DI 10:03 | PROVIDERS: ATTEND Nurse Practitioner Family | DX: I10 Essential (primary) hypertension (principal) | CPT/HCPCS: 93306 ==

== ENCOUNTER 2022-06-12 13:21 | Outpatient (CLI) | payer MEDICARE, MEDICAID ==
--- NOTE | 2022-06-13 09:39 | Mammography Report ---
BILATERAL DIGITAL SCREENING MAMMOGRAM 3D/2D: 06/12/2022 CLINICAL: Baseline exam. Routine screening. No prior exams were available for comparison. There are scattered areas of fibroglandular density in both breasts (category b / 25%-50% glandular t issue). No significant masses, calcifications, or other findings are seen in either breast. IMPRESSION: NEGATIVE There is no mammographic evidence of malignancy. A 1 year screening mammogram is recommended. Based on the Tyrer Cuzick model (a risk assessment model) the patients lifetime risk is 3.2% and her 10 year risk is 2.8%. According to the ACR, ACS, and NCCN guidelines, an annual breast MRI exam tyesha g with mammogram is recommended if the patients lifetime risk is 20% or greater. This exam was interpreted at Station ID: [id number]. NOTE: For mammograms, a report in lay terms will be sent to the patient. Approximately 15% of breast malignancies will not be visualized mammographically. In the management of a palpable breast mass, a negative mammogram must not discourage biopsy of a clinically suspicious lesion. Electronically Signed By: Anderson silva/jenniffer:06/12/2022 15:11:21 letter sent: No_Letter ACR BI-RADS Category 1: Negative 3341F PARENCHYMAL PATTERN: (A) - The breast(s) demonstrate(s) scattered fibroglandular densities. BI-RADS CATEGORY: (1) - 1 Mammogram [id number] 1 year screening LATERALITY: (B)
== END 2022-06-12 13:22 | disposition home or self-care (01) ==
LOC: DI 13:21
DX: Z12.31 Encounter for screening mammogram for malignant neoplasm of breast (principal)

== ENCOUNTER 2022-09-17 13:48 | Outpatient (CLI) | payer MEDICARE, MEDICAID ==
[2022-09-17 14:04] LABS: BASOPHILS % (AUTO) 0.3 %; EOSINOPHILS # (AUTO) 0.1 10^3/uL (0.0-0.7); EOSINOPHILS % (AUTO) 2.4 %; HCT - HEMATOCRIT 35.8 % (37.0-47.0); HGB - HEMOGLOBIN 11.3 g/dL (12.0-16.0); LYMPHOCYTES # (AUTO) 1.3 10^3/uL (1.5-3.5); LYMPHOCYTES % (AUTO) 22.1 %; MEAN CORPUSCULAR HEMOGLOBIN 29.4 pg (27.0-31.0); MEAN CORPUSCULAR HGB CONC 31.6 g/dL (32.0-36.0); MEAN CORPUSCULAR VOLUME 93.2 fL (81.0-99.0); MEAN PLATELET VOLUME 8.8 fL (7.9-10.8); MONOCYTES # (AUTO) 0.5 10^3/uL (0.0-1.0); MONOCYTES % (AUTO) 8.9 %; NEUTROPHILS # (AUTO) 3.9 10^3/uL (1.5-6.6); NEUTROPHILS % (AUTO) 66.1 %; PLT - PLATELET COUNT 199 10^3/uL (130-450); RED BLOOD COUNT 3.84 10^6/uL (4.20-5.40); RED CELL DISTRIBUTION WIDTH 13.6 % (12.0-15.0); WHITE BLOOD COUNT 5.9 x10^3/uL (4.8-10.8)
[2022-09-17 14:25] LABS: CALCIUM 9.3 mg/dL (8.5-10.3); CREATININE 1.2 mg/dL (0.4-1.0)
[2022-09-17 14:42] LABS: FERRITIN 81.7 ng/mL (11.0-306.8)
[2022-09-17 14:46] LABS: FOLATE 14.37 ng/mL (5.90 - >24.8)
== END 2022-09-17 13:49 | disposition home or self-care (01) ==
LOC: LAB 13:48
PROVIDERS: ATTEND Physician Assistant Medical
DX: N18.9 Chronic kidney disease, unspecified (principal); D64.9 Anemia, unspecified
CPT/HCPCS: 36415; 80048; 82607; 82728; 82746; 83540; 84466; 85025

== ENCOUNTER 2022-09-22 09:54 | Outpatient (CLI) | payer MEDICARE, MEDICAID ==
[2022-09-22 12:22] LABS: FECAL OCCULT BLOOD (FIT) NEGATIVE (NEGATIVE)
== END 2022-09-22 09:55 | disposition home or self-care (01) ==
LOC: LAB 09:54 → LAB.R 09:55
PROVIDERS: ATTEND Physician Assistant Medical
DX: D64.9 Anemia, unspecified (principal)
CPT/HCPCS: 82274

== ENCOUNTER 2022-11-24 14:05 | Outpatient (CLI) | payer MEDICARE, MEDICAID ==
--- NOTE | 2022-09-17 14:15 | WOUND CARE PROGRESS NOTE ---
Assessment/Plan - Problem List (1) Venous insufficiency Assessment/Plan: She is s/p TRINIDAD on 04/[address] Fish. Unfortunately, this procedure has not resulted in any improvement in the ulcer. Biopsy has returned consistent with venous insufficiency ulcer. Consider referral back to [facility] c enter for reevaluation. Will first obtain venous reflux US on RLE. 2-layer compression wrap. 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 A biopsy showed moderately prominent neutrophilic infiltrate and it was felt her clinical presentation was consistent with PG. Other lab workup was rather non- contributory. She is also followed by Anderson Quesada MD, rheumatology. Previous treatment included prednisone and cyclosporine. I reviewed her wound images going back to her initial intake. There are some images that would be more consistent with atypical ulceration and PG would be within the differential. She did have some decent improvement with prednisone and cyclosporine. However, I obtained another biopsy, and results were consistent with venous insufficiency ulceration. Treatment plan incorporates (when appropriate): (1) Correction of etiologic factors, (2) Optimization of the local wound environment to promote healing by cleansing, debriding, managing bacterial balance, and managing moisture balance, (3) Appropriate off-loading, (4) Treatment of infection, (5) Addressing host co-factors/co-morbidities that may affect healing, and (6) Consideration of advanced therapies such as application of cellular and/or tissue products/skin grafting. Status: Stalled size. Increased granulation. Wound VAC held. Dressed with gentamicin topical ointment and silver hydrofiber. Covered with ABD and secured with rolled gauze. Consider placement of CTPs. Goals: Remove devitalized tissue. Minimize edema Treat infection/bioburden Manage co-morbidities Wound closure Appropriate follow up instructions were given. Recheck in 5 days. Sooner, PRN. (3) Local infection of the skin and subcutaneous tissue, unspecified Assessment/Plan: Gentamicin. See above. Patient to perform daily acetic acid soaks. - Home Meds/Allergies Allergies No Known Drug Allergies Allergy (Verified 03/15/20 12:28) Objective Comments/Notes: Vitals: T: 98.2 F, HR 68, RR 15, BP 112/70. O2 Sat 97% (room air). Constitutional: NAD. Alert and conversant. Respiratory: Normal respiratory effort. Cardiovascular: Regular rate. Previously reviewed: Labs: 06/19/22: WBC normal. ESR 63. CRP 4.1. GFR 54. Micro: 08/05/2022: Right lower extremity wound. Gram stain rare WBC. No organisms. Culture no growth after 3 days. 06/10/2022: Culture of wound #1 growing 2+ coagulase-negative Staphylococcus and 1+ Pseudomonas aeruginosa (resistant to ciprofloxacin and levofloxacin, intermediate to gentamicin, sensitive to piperacillin/tazobactam). Gram stain shows no organisms. Rare WBCs. Culture of proximal breakdown growing 2+ coagulase-negative Staphylococcus. - Wound Assessment Wound #1 is a full-thickness venous insufficiency ulcer of the right lower extremity. It measures 9.2 x 9.0 x 0.1 (L x W x D). There is no tunneling, undermining, or sinus tract. There is heavy serosanguineous drainage with mild odor. The wound margin is attached. The wound bed has no epithelialization, no eschar, yes slough, yes, increasing red granulation tissue. The periwound color, texture, moisture, and temperature are normal. Exposed structures: Adipose. Subjective - Subjective Patient Reports: Other (Wound VAC and compression intact. However, GranuFoam had again grown into granulation tissue despite placement of DACC dressing. Painful removal. Dark green drainage in canister. Denies FCS.)
--- NOTE | 2022-11-24 16:47 | DEXA Report ---
PROCEDURE: Dexa Spine and/or Hip INDICATIONS: POST MENOPAUSAL TECHNIQUE: Dual energy x-ray absorptiometry (DXA) was performed on a [employer] System. Regions measur ed are the AP Spine, femoral neck, and if needed forearm. COMPARISON: 07/06/2020 FINDINGS: Lumbar Spine: Bone Mineral Density 0.959 g/cm/cm,T score 0.8. Since the most recent prior study, there has been a statistically significant increase in bone mineral density by 19.1 percent. Left Femoral Neck: Bone Mineral Density 0.621 g/cm/cm, T score -3.0. Left Hip: Bone Mineral Density 0.660 g/cm/cm,T score -2.8. There has been no statistically significant change i n bone mineral density since the prior study. (T score greater or equal to -1.0: NORMAL) (T score from -1.1 to -2.4: OSTEOPENIA) (T score less than or equal to -2.5 to: OSTEOPOROSIS) IMPRESSION: By WHO criteria, this patient has osteoporosis. Interval statistical increase in bone minteral density of the lumbar spine. No statistical interval c hange in bone minteral density of the hip. Patients with diagnosis of osteoporosis or osteopenia should have regular bone mineral density assess ment. For those eligible for Medicare, routine testing is allowed once every 2 years. Testing frequ ency can be increased for patients who have rapidly progressing disease or for those who are receivin g medical therapy to restore bone mass. Reviewed by: Anderson Hoffman MD on 11/24/2022 4:45 PM PDT Approved by: Anderson Hoffman MD on 11/24/2022 4:45 PM PDT Station ID: [id number]
== END 2022-11-24 14:06 | disposition home or self-care (01) ==
LOC: DI 14:05
PROVIDERS: ATTEND Physician Assistant Medical
DX: Z78.0 Asymptomatic menopausal state (principal); M81.0 Age-related osteoporosis without current pathological fracture